=== PATIENT | female | born 1990 | race Caucasian/White ===

== ENCOUNTER 2021-09-06 21:55 | Emergency (ER) | payer OTHER ==
[~2021-09-06] VITALS: Ht 170 cm; Wt 100.0 kg
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
[2021-09-06] MEDS ORDERED: HYDROcodone/APAP 5 MG/325 MG (LORTAB) TAB PO ONE (22:45)
[2021-09-06] MEDS ORDERED: LORazepam 0.5 MG (ATIVAN) TABLET ONE (23:05)
[2021-09-06] MEDS ORDERED: LORazepam 0.5 MG (ATIVAN) TABLET PO ONE (23:15)
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
[2021-09-06] MEDS ORDERED: TETANUS,DIPTH,PERTUSS P/F (BOOSTRIX) 0.5 ML VIAL IM ONE (23:45)
[2021-09-06 23:55] VITALS: BP 124/92
[2021-09-06] MEDS ORDERED: ALPR0.25 PO (23:57)
== END 2021-09-07 00:05 | disposition home or self-care (01) ==
LOC: EDUNIT# 21:55 → ER 21:58
DX: S01.01XA Laceration without foreign body of scalp, initial encounter (principal); S01.21XA Laceration without foreign body of nose, initial encounter; M54.2 Cervicalgia; F41.9 Anxiety disorder, unspecified; Z23 Encounter for immunization; X99.9XXA Assault by unspecified sharp object, initial encounter
CPT/HCPCS: 70450; 70486; 72125; 90715